=== PATIENT | female | born 1990 ===

== ENCOUNTER 2017-02-13 20:35 | Emergency (ER) | payer BC ==
--- NOTE | 2017-02-13 21:10 | EDM.PDOC ---
ED HPI GENERAL MEDICAL PROBLEM - General Chief Complaint: CPR in Progress Stated Complaint: AMBULANCE Time Seen by Provider: 02/13/17 21:04 - History of Present Illness INITIAL COMMENTS - FREE TEXT/NARRATIVE: Patient is a 21 [id number]-oyf white female who presents status post self- inflicted sharp force trauma to her throat with massive bleeding prior to arrival in presents as a traumatic arrest with CPR in progress no IV access no airway on arrival she is in PEA she was intubated by myself with a 7.5 ET tube there was good color change status post intubation the breath sounds are equal subsequent central line was placed in the left femoral peripheral line or right upper extremity fluids were initiated wide open and life-support measures were continued patient remained pulseless nonbreathing rhythm converted to a systolic /agonal patient remained unresponsive physical exam was remarkable for a proximately 5 cm deep laceration or anterior neck was no active bleeding on arrival blood this was closed with sarah. Chest abdomen pelvis and extremities and back were otherwise atraumatic patient was pronounced at 2040 please see code sheet for details of resuscitation Impression status post traumatic arrest ED ROS GENERAL - Review of Systems Review Of Systems: ROS reveals no pertinent complaints other than HPI. ED EXAM, GENERAL - Physical Exam Exam: See Below Departure - Departure Time of Disposition: 21:10 Disposition: 20 Clinical Impression: Traumatic cardiac arrest - Discharge Information Forms: ED Department Discharge
== END 2017-02-13 22:40 | disposition expired ==
LOC: EDBD 20:35 → MW.ED 20:35 → MERGE 20:35 → MW.ED 22:40
DX: I46.8 Cardiac arrest due to other underlying condition (principal); S11.81XA Laceration without foreign body of other specified part of neck, initial encounter; X78.9XXA Intentional self-harm by unspecified sharp object, initial encounter
CPT/HCPCS: 31500; 92950; 99291; G0390; 99285